=== PATIENT | female | born 1990 | race Caucasian/White ===

== ENCOUNTER 2018-09-22 20:12 | Emergency (ER) | payer SELFPAY ==
--- NOTE | 2018-09-22 21:09 | EDM.PDOC ---
ED HPI GENERAL MEDICAL PROBLEM - General Chief Complaint: Genitourinary Problem Stated Complaint: BLOOD IN URINE Time Seen by Provider: 09/22/18 20:34 Source of Information: Reports: Patient, RN Notes Reviewed History Limitations: Reports: No Limitations - History of Present Illness INITIAL COMMENTS - FREE TEXT/NARRATIVE: Patient is a 27-year-old female who presents to the ED today for the evaluation of blood in her urine and dysuria. She states that roughly on 06 September she believe that she had to be a UTI with similar symptoms, she phoned a physician friend and he prescribed her nitrofurantoin for an antibiotic. She states that she did take these antibiotics as prescribed and her symptoms initially got better, however she noted dysuria and blood in her urine that started again today. She denies any fever, but does have some mild chills and right lower back pain. She further denies any nausea/vomiting/diarrhea at this time. She notes that she currently just got over her last menstrual period a few days ago as well. - Related Data Allergies Allergy/AdvReac Type Severity Reaction Status Date / Time No Known Allergies Allergy Verified 09/22/18 20:21 Home Meds: Home Meds Ciprofloxacin HCl [Cipro] 500 mg PO BID #13 tablet 09/22/18 [Rx] Past Medical History - Past Health History Medical/Surgical History: Denies Medical/Surgical History Social & Family History - Family History Family Medical History: Noncontributory - Tobacco Use Smoking Status *Q: Current Every Day Smoker Years of Tobacco use: 5 Packs/Tins Daily: 0.8 - Caffeine Use Caffeine Use: Reports: Soda - Recreational Drug Use Recreational Drug Use: No ED ROS GENERAL - Review of Systems Review Of Systems: See Below Constitutional: Reports: Chills. Denies: Fever HEENT: Reports: No Symptoms Respiratory: Reports: No Symptoms Cardiovascular: Reports: No Symptoms Endocrine: Reports: No Symptoms GI/Abdominal: Denies: Abdominal Pain, Diarrhea, Nausea, Vomiting : Reports: Dysuria, Hematuria, Urinary Retention (feelings of not emptying bladder completely) Musculoskeletal: Reports: No Symptoms Skin: Reports: No Symptoms Neurological: Reports: No Symptoms Psychiatric: Reports: No Symptoms ED EXAM, RENAL/ - Physical Exam Exam: See Below Exam Limited By: No Limitations General Appearance: Alert, WD/WN, No Apparent Distress Eye Exam: Bilateral Eye: Normal Inspection Respiratory/Chest: No Respiratory Distress, Lungs Clear, Normal Breath Sounds, No Accessory Muscle Use, Chest Non-Tender Cardiovascular: Normal Peripheral Pulses, Regular Rate, Rhythm, No Murmur GI/Abdominal: Normal Bowel Sounds, Soft, Non-Tender, No Distention, No Mass Back Exam: Normal Inspection, Full Range of Motion. No: CVA Tenderness (L), CVA Tenderness (R) Extremities: Normal Inspection, Normal Capillary Refill Neurological: Alert, Oriented, No Motor/Sensory Deficits Psychiatric: Normal Affect, Normal Mood Skin Exam: Warm, Dry, Intact, Normal Color, No Rash Course - Vital Signs Last Recorded V/S: Last Vital Signs Temp 97.6 F 09/22/18 20:18 Pulse 68 09/22/18 20:18 Resp 18 09/22/18 20:18 BP 144/96 H 09/22/18 20:18 Pulse Ox 100 09/22/18 20:18 - Orders/Labs/Meds Labs: Laboratory Tests 09/22/18 Range/Units 20:51 Urine Color Light pink (Yellow) Urine Appearance Slt cloudy H (Clear) Urine pH 6.5 (5.0-8.0) Ur Specific Jackson 1.010 (1.005-1.030) Urine Protein 2+ H (Negative) Urine Glucose (UA) Negative (Negative) Urine Ketones Negative (Negative) Urine Occult Blood 3+ H (Negative) Urine Nitrite Negative (Negative) Urine Bilirubin Negative (Negative) Urine Urobilinogen 0.2 (0.2-1.0) Ur Leukocyte Esterase 2+ H (Negative) Urine RBC 10-20 H (0-5) /hpf Urine WBC 40-50 H (0-5) /hpf Urine WBC Clumps Few (NOT SEEN) /hpf Ur Epithelial Cells 0-5 (0-5) /hpf Urine Bacteria Moderate H (FEW) /hpf Urine Mucus Not seen (FEW) /hpf Meds: Medications Discontinued Medications Generic Name Dose Route Start Last Admin Trade Name Freq PRN Reason Stop Dose Admin Levofloxacin 500 mg 09/22/18 21:14 Levaquin PO 09/22/18 21:15 ONETIME ONE - Re-Assessments/Exams Free Text/Narrative Re-Assessment/Exam: 09/22/18 21:06 Patient presents to the ED for the evaluation of UTI like symptoms. Her symptoms are very suspicious for a UTI at this time a urinalysis has been collected and is sent to lab and is pending. I will likely give the patient was antibiotics in the ED tonight and provide her with prescription for further antibiotics to the [place] [facility] located in the [employer] store. 09/22/18 21:16 Patient's UA is back and demonstrate many urine bacteria, white blood cells with 3+ blood in her urine, however it is nitrite negative at this time. I have ordered 1 500 mg dose of Levaquin to be given in the ED tonight and will provide her with the ciprofloxacin 500 mg twice a day for 7 days to the pharmacy noted above. Departure - Departure Time of Disposition: 21:17 Disposition: Home, Self-Care 01 Condition: Fair Clinical Impression: UTI, Urinary tract infectious disease - Discharge Information *PRESCRIPTION DRUG MONITORING PROGRAM REVIEWED*: No *COPY OF PRESCRIPTION DRUG MONITORING REPORT IN PATIENT BRIGITTE: No Prescriptions: Ciprofloxacin HCl [Cipro] 500 mg PO BID #13 tablet Instructions: Urinary Tract Infection, Adult, [id number] Referrals: PCP,None [Primary Care Provider] - Forms: ED Department Discharge Additional Instructions: You have been evaluated in the ED tonight for your UTI like symptoms. Your urinalysis showed that you do in fact have a urinary tract infection. Please take the antibiotic as prescribed, this has been sent to the [facility] pharmacy located in the [employer] store. You may take Azo urinary pain relief as needed for further pain relief. This will make your urine turn orange however. Please take as directed on the box. Please increase your oral fluid intake as well. Please return to the ER if your symptoms change or worsen.
[2018-09-22] MEDS ORDERED: Levofloxacin 500 MG Tab PO ONE (21:14)
== END 2018-09-22 21:23 | disposition home or self-care (01) ==
LOC: JD.ED 20:12
DX: N39.0 Urinary tract infection, site not specified (principal); F17.210 Nicotine dependence, cigarettes, uncomplicated
CPT/HCPCS: 81001; 99283; A9270